=== PATIENT | male | born 1995 | race Caucasian/White ===

== ENCOUNTER 2020-10-17 21:02 | Emergency (ER) | payer MEDICAID, SELFPAY ==
--- NOTE | ~2020-10-17 | CT_ITS ---
EXAMINATION: CT abdomen pelvis w con DATE: 10/17/2020 22:18 INDICATION: Left lower quadrant abdominal pain radiating to scrotum TECHNIQUE: Computed tomography (CT) of the abdomen and pelvis was performed with 100 cc Omnipaque 350 intravenous contrast. Automated exposure control and iterative reconstruction technique were employe d. Exam dose: 281.86 mGy-cm total exam DLP. COMPARISON: 10/17/2020 scrotum doppler. FINDINGS: The lung bases are clear. Heart size is normal. No pericardial or pleural effusion. The liver, gallbladder, bile ducts, spleen, pancreas, and adrenal glands and kidneys appear normal ot her than probable 3 mm lower pole right renal cyst. No urinary tract calculus or hydroureteronephrosi s. Normal caliber of the abdominal aorta. No intraperitoneal or retroperitoneal or pelvic mass lesion or adenopathy or ascites. No bowel obstruction, bowel wall thickening, pneumatosis or intraperitoneal free air is evident. Small fat-containing umbilical hernia. The urinary bladder, prostate gland and seminal vesicles are u nremarkable. Included skeletal structures are unremarkable. IMPRESSION: No significant abnormality Reviewed, dictated and finalized at [facility]. Reviewed, dictated and finalized at [facility]. LTY DIPPER IMPRESSION: No significant abnormality
--- NOTE | ~2020-10-17 | US_ITS ---
US scrotum doppler DATE: 10/17/2020 22:31 INDICATION: Left scrotal pain. Evaluate for torsion. TECHNIQUE: Real-time and color flow imaging and Doppler analysis of the scrotal contents COMPARISON: None FINDINGS: Left testicle measures 3.4 x 2.7 x 2.6 cm. Right testicle measures 4.3 x 3.0 x 1.9 cm. No testicular mass lesion or torsion is evident. Testicul ar echotexture is symmetric. The epididymis is unremarkable bilaterally. Left varicocele is demonstrated with vessel diameter up to 2.5 mm on Valsalva maneuver. IMPRESSION: Left varicocele No evidence of testicular mass lesion or torsion Reviewed, dictated and finalized at [facility]. Reviewed, dictated and finalized at [facility]. TICING MD ANESTHESIOLOGIST
[2020-10-17 21:14] VITALS: BP 132/70; PULSE 99; RESP 18; TEMP 36.9; O2SAT 99
[2020-10-17] MEDS: SODIUM CHLORIDE 0.9% IV 1,000 ML 999 ML IV CONT (21:31)
[2020-10-17 21:36] LABS: Basophils Percent Auto 0.4 % (0.2-1.2); Eosinophils Absolute Auto 0.3 K/mm3 (0-0.3); Eosinophils Percent Auto 4.3 % (0-4.4); Hematocrit 42.2 % (42.0-52.0); Hemoglobin 13.7 g/dL (14.0-18.0); Immature Granulocyte Absolute 0.02 K/mm3 (0.00-0.031); Immature Granulocyte Percent A 0.3 % (0-0.5); Lymphocytes Absolute Auto 1.89 K/mm3 (0.9-3.2); Lymphocytes Percent Auto 27.2 % (18.3-44.2); Mean Corpuscular HGB Conc 32.5 g/dl (32-36); Mean Corpuscular Hemoglobin 31.1 pg (26-34); Mean Corpuscular Volume 95.7 fl (80-100); Mean Platelet Volume 8.4 fl (7.4-10.4); Monocytes Absolute Auto 0.6 K/mm3 (0.1-0.6); Monocytes Percent Auto 8.8 % (2.6-8.5); Neutrophils Absolute Auto 4.1 K/mm3 (1.3-6.7); Platelet Count Result 256 k/mm3 (150-375); Red Blood Count 4.41 M/mm3 (4.6-6.20); Red Cell Distribution Width 13.5 % (11.5-14.5)
[2020-10-17 21:49] LABS: Alanine Aminotransferase 20 U/L (4-50); Albumin Level 3.8 g/dL (3.5-5.1); Alkaline Phosphatase 55 U/L (38-126); Anion Gap 5 mmol/L (8-16); Aspartate Amino Transferase 31 U/L (17-59); Bilirubin,Total 0.3 mg/dL (0.2-1.3); Blood Urea Nitrogen 17 mg/dL (9-20); Calcium 8.6 mg/dL (8.4-10.2); Carbon Dioxide 29 mmol/L (22-30); Chloride 103 mmol/L (98-107); Estimated Glomerular Filt Rate > 60; Glucose 88 mg/dL (75-110); Lipase 73 U/L (23-300); Potassium 4.2 mmol/L (3.4-5.0); Sodium 137 mmol/L (137-145)
--- NOTE | 2020-10-17 22:20 | ED.ABDPAIN ---
HPI - Abdominal Pain General Chief Complaint: Urogenital-Male Stated Complaint: I think I have a hernia on my nuts Time Seen by Provider: 10/17/20 21:13 History of Present Illness HPI narrative: Patient is a 24-year-old gentleman who presents the emergency department with chief complaint of left testicle pain and left lower quadrant pain. The patient states the pain has been going on for last several days reports that he feels a lump on his testicle and that it is tender to palpation. The patient also reports that he has pain in his left lower quadrant and is concerned that he may have a hernia. Patient denies burning with urination denies penile discharge denies trauma. Patient denies nausea vomiting or diarrhea. Patient reports the pain is worse with palpation and improved with rest Review of Systems Review of Systems: Narrative: A 10 system review of systems was completed on the patient and is negative except for what is stated in the HPI. Nursing and ancillary documentation was reviewed. PMFSH Comments Patient denies past medical history Social history the patient denies illicit drug use Exam Narrative: Exam Narrative: GENERAL: Well-appearing, well-nourished, and in no acute distress. HEAD: Normocephalic, atraumatic. EYES: PERRLA and EOMI. ENT: Nares clear, no rhinorrhea or epistaxis. Mucous membranes moist. NECK: Supple. CHEST: Clear to auscultation. No respiratory distress. HEART: Regular rate and rhythm. No murmur heard. Normal peripheral pulses. ABDOMEN: Soft, mild tenderness to palpation in the left lower quadrant, nondistended, normal active bowel sounds. : There is tenderness to palpation in the left epididymis EXTREMITIES: Normal range of motion. No edema. SKIN: Warm, dry, no rash. NEURO: No focal deficits. Alert and oriented x3. PSYCH: Normal mood and affect. Course Vital Signs Vital signs: Vital Signs Temperature 36.9 C 10/17/20 21:14 Pulse Rate 99 10/17/20 21:14 Respiratory Rate 18 10/17/20 21:14 Blood Pressure 132/70 10/17/20 21:14 Pulse Oximetry 99 10/17/20 21:14 Temperature 36.9 C 10/17/20 21:14 Pulse Rate 99 10/17/20 21:14 Respiratory Rate 18 10/17/20 21:14 Blood Pressure 132/70 10/17/20 21:14 Pulse Oximetry 99 10/17/20 21:14 MDM - Abdominal Pain Lab Data Result diagrams: 10/17/20 21:30 10/17/20 21:30 Labs: Lab Results 10/17/20 10/17/20 10/17/20 Range/Units 21:30 21:30 22:49 WBC 7.0 (4.5-10.0) K/mm3 RBC 4.41 L (4.6-6.20) M/mm3 Hgb 13.7 L (14.0-18.0) g/dL Hct 42.2 (42.0-52.0) % MCV 95.7 (80-100) fl MCH 31.1 (26-34) pg MCHC 32.5 (32-36) g/dl RDW 13.5 (11.5-14.5) % Plt Count 256 (150-375) k/mm3 MPV 8.4 (7.4-10.4) fl Immature Gran % (Auto) 0.3 (0-0.5) % Neut % (Auto) 59.0 (45.5-73.1) % Lymph % (Auto) 27.2 (18.3-44.2) % Louisa % (Auto) 8.8 H (2.6-8.5) % Eos % (Auto) 4.3 (0-4.4) % Baso % (Auto) 0.4 (0.2-1.2) % Lymph # (Auto) 1.89 (0.9-3.2) K/mm3 Louisa # (Auto) 0.6 (0.1-0.6) K/mm3 Eos # (Auto) 0.3 (0-0.3) K/mm3 Baso # (Auto) 0.0 (0.0-0.1) K/mm3 Abs Immat Gran (auto) 0.02 (0.00-0.031) K/mm3 Absolute Neuts (auto) 4.1 (1.3-6.7) K/mm3 Absolute Nucleated RBC 0.0 (0.0-0.012) K/mm3 Nucleated RBC % 0.0 (0.0-0.2) % Sodium 137 (137-145) mmol/L Potassium 4.2 (3.4-5.0) mmol/L Chloride 103 (98-107) mmol/L Carbon Dioxide 29 (22-30) mmol/L Anion Gap 5 L (8-16) mmol/L BUN 17 (9-20) mg/dL Creatinine 1.10 (0.7-1.3) mg/dL Estim Creat Clear Calc Not Reportable Estimated GFR > 60 (59 - ) Glucose 88 (75-110) mg/dL Calcium 8.6 (8.4-10.2) mg/dL Total Bilirubin 0.3 (0.2-1.3) mg/dL AST 31 (17-59) U/L ALT 20 (4-50) U/L Alkaline Phosphatase 55 (38-126) U/L Total Protein 7.0 (6.3-8.2) g/dL Albumin 3.8 (3.5-5.1) g/dL Lipase 73 (23-300) U/
[2020-10-17 22:57] LABS: Add Urine Microscopic? NO; Appearance Urine Clear (Clear); Bilirubin Urine Negative (Negative); Blood Urine Negative (Negative); Color Urine Yellow (Yellow); Glucose Urine UA Negative (Negative); Ketones Urine Negative (Negative); Leukocyte Esterase Ur Negative LEU/UL (Negative); Nitrate Urine Negative (Negative); Protein Urine Negative (Negative); Urobilinogen Urine Negative mg/dL (<2.0)
[2020-10-17 23:05] LABS: Specific Grav Ur 1.041 (1.001-1.035)
[2020-10-17 23:24] VITALS: BP 118/75; PULSE 78; RESP 16; TEMP 36.9; O2SAT 98
== END 2020-10-17 23:25 | disposition home or self-care (01) ==
PROVIDERS: Emergency Provider Emergency Medicine
DX: I86.1 Scrotal varices (principal); N50.812 Left testicular pain
CPT/HCPCS: 36415; 74177; 76870; 80053; 81003; 83690; 85025; 87491; 87591; 93976; 96360; 99284; J7030; Q9967